=== PATIENT | female | born 1960 | race Caucasian/White ===

== ENCOUNTER → 2016-09-02 | Outpatient (CLI) | payer OTHER ==
[2016-09-02 15:53] LABS: HEMOGLOBIN 14.1 g/dL (11.7-16.4)
[2016-09-02 16:03] LABS: ASPARTATE AMINO TRANSFERASE 23 U/L (15-37); BLOOD UREA NITROGEN 17 mg/dL (7-18); C-REACTIVE PROTEIN, QUANT 0.81 mg/dL (0.02-0.49)
== END | disposition home or self-care (01) ==
LOC: LAB 15:29
PROVIDERS: ATTEND Internal Medicine Rheumatology
DX: M06.09 Rheumatoid arthritis without rheumatoid factor, multiple sites (principal); Z79.899 Other long term (current) drug therapy
CPT/HCPCS: 36415; 80053; 85025; 86140

== ENCOUNTER → 2016-09-11 | Outpatient (CLI) | payer OTHER | END | disposition home or self-care (01) | LOC: CVU 11:45 | PROVIDERS: ATTEND Internal Medicine Cardiovascular Disease | DX: I07.1 Rheumatic tricuspid insufficiency (principal); I34.0 Nonrheumatic mitral (valve) insufficiency; I87.2 Venous insufficiency (chronic) (peripheral) | CPT/HCPCS: 93306; 93970 ==

== ENCOUNTER 2016-10-23 08:46 | Emergency (ER) | payer OTHER ==
[~2016-10-23] VITALS: Ht 167.6 cm; Wt 96.3 kg
[2016-10-23] MEDS ORDERED: ONDANSETRON ODT 4 MG PO ONE (10:00)
[2016-10-23] MEDS ORDERED: ONDANSETRON ODT 4 MG ONE (10:01)
[2016-10-23 10:12] LABS: BLOOD UREA NITROGEN 23 mg/dL (7-18)
[2016-10-23] MEDS ORDERED: KETOROLAC 30 MG/1 ML IM ONE (11:00)
[2016-10-23] MEDS ORDERED: KETOROLAC 30 MG/1 ML ONE (11:17)
[2016-10-23 11:27] VITALS: BP 139/84
== END 2016-10-23 12:24 | disposition home or self-care (01) ==
LOC: ED 11:05
DX: G43.109 Migraine with aura, not intractable, without status migrainosus (principal); Z90.710 Acquired absence of both cervix and uterus; Z88.0 Allergy status to penicillin; Z88.5 Allergy status to narcotic agent; Z88.8 Allergy status to other drugs, medicaments and biological substances; Z91.013 Allergy to seafood
CPT/HCPCS: 36415; 70450; 80048; 85025; 96372; 99285; J1885; Q0162

== ENCOUNTER → 2016-12-05 | Outpatient (CLI) | payer OTHER | END | disposition home or self-care (01) | LOC: CFH 07:34 | PROVIDERS: ATTEND Family Medicine | DX: Z12.31 Encounter for screening mammogram for malignant neoplasm of breast (principal) | CPT/HCPCS: G0202 ==

== ENCOUNTER → 2017-01-13 | Outpatient (CLI) | payer OTHER | END | disposition home or self-care (01) | LOC: CFH 15:53 | PROVIDERS: ATTEND Anesthesiology | DX: M48.06 Spinal stenosis, lumbar region (principal); M47.895 Other spondylosis, thoracolumbar region; M43.16 Spondylolisthesis, lumbar region; M43.17 Spondylolisthesis, lumbosacral region; M12.88 Other specific arthropathies, not elsewhere classified, other specified site; M51.35 Other intervertebral disc degeneration, thoracolumbar region; M25.78 Osteophyte, vertebrae | CPT/HCPCS: 72148 ==

== ENCOUNTER 2017-03-12 07:46 | Day surgery (SDC) | payer OTHER ==
[~2017-03-12] VITALS: Ht 167.6 cm; Wt 95.9 kg
[2017-03-12] MEDS ORDERED: LACTATED RINGERS 1,000 ML IV SCH (08:44)
[2017-03-12] MEDS ORDERED: CELE200C PO (08:51)
[2017-03-12] MEDS ORDERED: CYAN50002 PO (08:51)
[2017-03-12] MEDS ORDERED: ETAN50PE SC (08:51)
[2017-03-12] MEDS ORDERED: OMEP-110 PO (08:51)
[2017-03-12] MEDS ORDERED: LEVO100T5 PO (08:51)
[2017-03-12] MEDS ORDERED: ACET-76 PO (08:51)
[2017-03-12] MEDS ORDERED: HYDR200T PO (08:51)
[2017-03-12] MEDS ORDERED: CHOL500015 PO (08:51)
[2017-03-12 08:52] VITALS: BP 117/83
[2017-03-12] MEDS ORDERED: PLEASE ENTER HEIGHT AND WEIGHT MC SCH (09:00)
[2017-03-12] MEDS ORDERED: LIDOCAINE 1%, 2ML SQ PRN (09:00)
[2017-03-12] MEDS ORDERED: LIDOCAINE 1%, 2ML ONE (09:01)
[2017-03-12] MEDS ORDERED: MIDAZOLAM 1 MG/ML, 2ML ONE ×2 (09:45→10:16)
[2017-03-12] MEDS ORDERED: SUCCINYLCHOLINE 20 MG/ML, 10ML ONE (10:16)
[2017-03-12] MEDS ORDERED: ONDANSETRON 2MG/ML, 2ML ONE (10:16)
[2017-03-12] MEDS ORDERED: PROPOFOL 10 MG/ML, 20ML ONE (10:16)
[2017-03-12] MEDS ORDERED: DEXAMETHASONE 4 MG/ML, 1ML ONE (10:16)
[2017-03-12] MEDS ORDERED: ACETAMINOPHEN 650 MG/20.3 ML UDC ONE (11:22)
[2017-03-12] MEDS ORDERED: HYDROmorphone 1 MG/ML, 1ML ONE (11:22)
[2017-03-12] MEDS: HYDROmorphone 1 MG/ML, 1ML IV PRN ×2 (11:23→11:30)
[2017-03-12] MEDS ORDERED: OXYcodone 5 MG/5 ML ORAL.SOL UDC PO PRN (11:30)
[2017-03-12] MEDS ORDERED: METOCLOPRAMIDE 5 MG/ML, 2ML IV PRN (11:30)
[2017-03-12] MEDS ORDERED: hydrALAzine 20 MG/ML, 1ML IV PRN (11:30)
[2017-03-12] MEDS ORDERED: ONDANSETRON 2MG/ML, 2ML IVPush PRN (11:30)
[2017-03-12] MEDS ORDERED: ACETAMINOPHEN 325 MG TABLET PO PRN (11:30)
[2017-03-12] MEDS ORDERED: FENTANYL PF 100 MCG/2ML IV PRN (11:30)
[2017-03-12] MEDS ORDERED: LABETALOL 5MG/ML, 20ML IV PRN (11:30)
== END 2017-03-12 13:00 ==
LOC: OUT 07:46
PROVIDERS: ATTEND Internal Medicine Gastroenterology
DX: D12.5 Benign neoplasm of sigmoid colon (principal); K63.5 Polyp of colon; K29.60 Other gastritis without bleeding; K21.9 Gastro-esophageal reflux disease without esophagitis; R13.10 Dysphagia, unspecified; Z88.6 Allergy status to analgesic agent; Z88.8 Allergy status to other drugs, medicaments and biological substances
CPT/HCPCS: 43239; 43248; 45380; 45385; 88305; J0330; J1100; J1170; J2250; J2405; J2704; J3490; J7120

== ENCOUNTER 2017-04-08 11:55 | Emergency (ER) | payer OTHER ==
[~2017-04-08] VITALS: Ht 167.6 cm; Wt 99.7 kg
[~2017-04-08 11:55] MED LIST: ACET-76 PO; CELE200C PO; CHOL500015 PO; CYAN50002 PO; ETAN50PE SC; HYDR200T PO; LEVO100T5 PO; OMEP-110 PO
[2017-04-08] MEDS ORDERED: SODIUM CHLORIDE 0.9% 1,000 ML IV ONE (12:23)
[2017-04-08] MEDS ORDERED: KETOROLAC 30 MG/1 ML IVPush ONE (12:30)
[2017-04-08] MEDS ORDERED: ONDANSETRON 2MG/ML, 2ML IVPush ONE (12:30)
[2017-04-08] MEDS ORDERED: SODIUM CHLORIDE 0.9% 1,000ML IV ONE (12:30)
[2017-04-08] MEDS ORDERED: SODIUM CHLORIDE FLUSH 10ML SYR IVF ONE (12:30)
[2017-04-08] MEDS ORDERED: KETOROLAC 30 MG/1 ML ONE (12:57)
[2017-04-08] MEDS ORDERED: ONDANSETRON 2MG/ML, 2ML ONE (12:58)
[2017-04-08 15:11] VITALS: BP 123/87
== END 2017-04-08 16:18 | disposition home or self-care (01) ==
LOC: ED 13:11
DX: G43.909 Migraine, unspecified, not intractable, without status migrainosus (principal); M06.9 Rheumatoid arthritis, unspecified; Z88.0 Allergy status to penicillin; Z90.710 Acquired absence of both cervix and uterus
CPT/HCPCS: 96361; 96374; 96375; 99285; J1885; J2405; J7030

== ENCOUNTER → 2017-05-01 | Outpatient (CLI) | payer OTHER | END | disposition home or self-care (01) | LOC: LAB 08:57 | PROVIDERS: ATTEND Internal Medicine Rheumatology | DX: M06.09 Rheumatoid arthritis without rheumatoid factor, multiple sites (principal); Z79.899 Other long term (current) drug therapy | CPT/HCPCS: 36415; 86480 ==

== ENCOUNTER 2017-06-18 15:55 | Emergency (ER) | payer OTHER ==
[~2017-06-18] VITALS: Ht 167.6 cm; Wt 98.2 kg
[2017-06-18 17:17] LABS: CULTURE INDICATED? YES; MICROSCOPIC INDICATED
[2017-06-18 17:19] LABS: BASOPHILS # (AUTO) 0.03 x10^3/uL (0-0.1); BASOPHILS % (AUTO) 1 % (0-1); EOSINOPHILS # (AUTO) 0.05 x10^3/uL (0-0.4); EOSINOPHILS % (AUTO) 1 % (1-7); LYMPHOCYTES # (AUTO) 2.12 x10^3/uL (1-3.4); LYMPHOCYTES % (AUTO) 35 % (22-44); MD NO; MEAN CORPUSCULAR HEMOGLOBIN 31.1 pg (27.0-34.8); MEAN CORPUSCULAR HGB CONC 33.6 g/dL (32.4-35.8); MEAN CORPUSCULAR VOLUME 92.7 fL (80-100); MEAN PLATELET VOLUME 10.2 fL (7.4-10.4); MONOCYTES # (AUTO) 0.49 x10^3/uL (0.2-0.8); MONOCYTES % (AUTO) 8 % (2-9); NEUTROPHILS # (AUTO) 3.29 x10^3/uL (1.8-6.8); NEUTROPHILS % (AUTO) 55 % (42-75); PLATELET COUNT 198 x10^3/uL (130-400); RED BLOOD COUNT 4.63 x10^6/uL (3.82-5.3); RED CELL DISTRIBUTION WIDTH 13.7 % (9.6-15.2)
[2017-06-18 17:27] LABS: ALBUMIN 3.7 g/dL (3.4-5.0); ANION GAP 5 mmol/L (5-15); CALCIUM 9.2 mg/dL (8.5-10.1); CHLORIDE 112 mmol/L (98-107); CREATININE 0.67 mg/dL (0.55-1.02)
[2017-06-18 20:40] VITALS: BP 120/65
== END 2017-06-18 20:45 | disposition home or self-care (01) ==
LOC: ED 20:30
DX: N30.90 Cystitis, unspecified without hematuria (principal); M54.5 Low back pain; G43.909 Migraine, unspecified, not intractable, without status migrainosus; M06.9 Rheumatoid arthritis, unspecified
CPT/HCPCS: 36415; 74018; 76770; 80048; 81001; 82040; 85025; 87086; 99285

== ENCOUNTER 2017-12-15 06:06 | Day surgery (SDC) | payer OTHER ==
[~2017-12-15] VITALS: Ht 167.6 cm; Wt 96.0 kg
[~2017-12-15 06:06] MED LIST changes: -HYDR200T PO; +HYDR200T72 PO
[2017-12-15 07:04] VITALS: BP 133/92
[2017-12-15 07:08] VITALS: BP 133/92
[2017-12-15] MEDS ORDERED: TORADOL PO (07:22)
[2017-12-15] MEDS ORDERED: SODIUM CHLORIDE 0.9% 1,000 ML IV SCH (07:30)
[2017-12-15] MEDS ORDERED: KETOROLAC 30 MG/1 ML ONE (09:41)
[2017-12-15] MEDS ORDERED: KETOROLAC 30 MG/1 ML IVPush ONE (10:00)
[2017-12-15 10:07] LABS: GLUCOSE, CSF 47 mg/dL (40-80); TOTAL PROTEIN,CSF 47 mg/dL (15-45)
== END 2017-12-15 11:50 ==
LOC: OUT 06:06
PROVIDERS: ATTEND Registered Nurse
DX: G35 Multiple sclerosis (principal); Z88.8 Allergy status to other drugs, medicaments and biological substances; Z88.6 Allergy status to analgesic agent; Z88.0 Allergy status to penicillin; Z91.013 Allergy to seafood
CPT/HCPCS: 36415; 62270; 82040; 82042; 82784; 82945; 83873; 84157; 86645; 86695; 86696; 86762; 86777; 86778; 89051; J1885; J7030

== ENCOUNTER → 2018-03-04 | Outpatient (CLI) | payer OTHER ==
[~2018-03-04] MED LIST changes: +TORADOL PO
== END | disposition home or self-care (01) ==
LOC: CFH 10:47
PROVIDERS: ATTEND Specialist
DX: Z12.31 Encounter for screening mammogram for malignant neoplasm of breast (principal); M50.30 Other cervical disc degeneration, unspecified cervical region; M48.02 Spinal stenosis, cervical region; M06.9 Rheumatoid arthritis, unspecified; M15.9 Polyosteoarthritis, unspecified; M79.7 Fibromyalgia; Z88.0 Allergy status to penicillin; Z88.2 Allergy status to sulfonamides; Z88.5 Allergy status to narcotic agent
CPT/HCPCS: 72141; 77063; 77067

== ENCOUNTER → 2018-04-21 | Outpatient (CLI) | payer OTHER | END | disposition home or self-care (01) | LOC: CFH 09:08 | PROVIDERS: ATTEND Anesthesiology | DX: M48.02 Spinal stenosis, cervical region (principal) | CPT/HCPCS: 72125 ==

== ENCOUNTER → 2018-09-30 | Outpatient (CLI) | payer OTHER ==
[2018-09-30 14:17] LABS: BASOPHILS # (AUTO) 0.02 x10^3/uL (0-0.1); BASOPHILS % (AUTO) 0 % (0-1); EOSINOPHILS # (AUTO) 0.08 x10^3/uL (0-0.4); EOSINOPHILS % (AUTO) 1 % (1-7); LYMPHOCYTES # (AUTO) 2.73 x10^3/uL (1-3.4); LYMPHOCYTES % (AUTO) 39 % (22-44); MD NO; MEAN CORPUSCULAR HEMOGLOBIN 29.6 pg (27.0-34.8); MEAN CORPUSCULAR HGB CONC 33.5 g/dL (32.4-35.8); MEAN CORPUSCULAR VOLUME 88.3 fL (80-100); MEAN PLATELET VOLUME 9.9 fL (7.4-10.4); MONOCYTES # (AUTO) 0.53 x10^3/uL (0.2-0.8); MONOCYTES % (AUTO) 8 % (2-9); NEUTROPHILS % (AUTO) 52 % (42-75); PLATELET COUNT 226 x10^3/uL (130-400); RED CELL DISTRIBUTION WIDTH 14.1 % (9.6-15.2)
[2018-09-30 14:28] LABS: ALANINE AMINOTRANSFERASE 33 U/L (12-78); ALBUMIN 4.1 g/dL (3.4-5.0); ANION GAP 9 mmol/L (5-15); CALCIUM 9.5 mg/dL (8.5-10.1); CHLORIDE 114 mmol/L (98-107)
[2018-09-30 14:31] LABS: ALKALINE PHOSPHATASE 137 U/L (45-117); BILIRUBIN,TOTAL 0.4 mg/dL (0.2-1.0); CREATININE 0.78 mg/dL (0.55-1.02); TOTAL PROTEIN 7.7 g/dL (6.4-8.2)
== END | disposition home or self-care (01) ==
LOC: LAB 13:59
PROVIDERS: ATTEND Family Medicine
DX: M15.0 Primary generalized (osteo)arthritis (principal)
CPT/HCPCS: 36415; 80053; 85025

== ENCOUNTER → 2019-04-20 | Outpatient (CLI) | payer OTHER ==
[2019-04-20 13:00] LABS: HCT (SEDRATE) 44.5 % (34.6-47.8)
== END | disposition home or self-care (01) ==
LOC: LAB 10:19
PROVIDERS: ATTEND Internal Medicine Rheumatology
DX: M06.9 Rheumatoid arthritis, unspecified (principal); Z79.899 Other long term (current) drug therapy
CPT/HCPCS: 36415; 85651; 86140; 86803; 87340

== ENCOUNTER 2019-06-07 15:28 | Outpatient (CLI) | payer OTHER ==
[2019-06-07 15:59] LABS: HCT (SEDRATE) 43.8 % (34.6-47.8)
== END 2019-06-07 23:59 | disposition home or self-care (01) ==
LOC: LAB 15:28
PROVIDERS: ATTEND Internal Medicine Rheumatology
DX: M06.9 Rheumatoid arthritis, unspecified (principal)
CPT/HCPCS: 36415; 85651; 86140

== ENCOUNTER → 2019-07-30 | Outpatient (CLI) | payer OTHER ==
[2019-07-30 11:42] LABS: BASOPHILS # (AUTO) 0.04 x10^3/uL (0-0.1); BASOPHILS % (AUTO) 1 % (0-1); EOSINOPHILS # (AUTO) 0.04 x10^3/uL (0-0.4); EOSINOPHILS % (AUTO) 0 % (1-7); LYMPHOCYTES # (AUTO) 2.73 x10^3/uL (1-3.4); LYMPHOCYTES % (AUTO) 33 % (22-44); MD NO; MEAN CORPUSCULAR HEMOGLOBIN 30.2 pg (27.0-34.8); MEAN CORPUSCULAR HGB CONC 33.3 g/dL (32.4-35.8); MEAN CORPUSCULAR VOLUME 90.6 fL (80-100); MEAN PLATELET VOLUME 10.5 fL (7.4-10.4); MONOCYTES # (AUTO) 0.59 x10^3/uL (0.2-0.8); MONOCYTES % (AUTO) 7 % (2-9); NEUTROPHILS # (AUTO) 4.88 x10^3/uL (1.8-6.8); NEUTROPHILS % (AUTO) 59 % (42-75); PLATELET COUNT 231 x10^3/uL (130-400); RED BLOOD COUNT 4.79 x10^6/uL (3.82-5.3); RED CELL DISTRIBUTION WIDTH 14.8 % (9.6-15.2)
[2019-07-30 12:09] LABS: CHLORIDE 110 mmol/L (98-107)
[2019-07-30 12:35] LABS: ALANINE AMINOTRANSFERASE 26 U/L (12-78); ALBUMIN 3.7 g/dL (3.4-5.0); ALKALINE PHOSPHATASE 121 U/L (45-117); ANION GAP 3 mmol/L (5-15); BILIRUBIN,TOTAL 0.4 mg/dL (0.2-1.0); CALCIUM 9.1 mg/dL (8.5-10.1); CHOL/HDL RATIO 2.9; CHOLESTEROL, TOTAL 183 mg/dL (140-239); CREATININE 0.74 mg/dL (0.55-1.02); FREE T4 (FREE THYROXINE) 1.06 ng/dL (0.76-1.46); HDL CHOL % 35 % (28-40); HDL CHOLESTEROL (DIRECT) 64 mg/dL (40-60); LDL CHOLESTEROL,CALCULATED 95 mg/dL (54-169); LDL/HDL RATIO 1.5 (0.5-3.0); TOTAL PROTEIN 7.5 g/dL (6.4-8.2); TRIGLYCERIDES 120 mg/dL (50-200); VLDL CHOLESTEROL 24 mg/dL (0-25)
== END | disposition home or self-care (01) ==
LOC: LAB 11:18
PROVIDERS: ATTEND Family Medicine
DX: Z13.1 Encounter for screening for diabetes mellitus (principal); R00.2 Palpitations; R53.83 Other fatigue; Z13.220 Encounter for screening for lipoid disorders
CPT/HCPCS: 36415; 80053; 80061; 82306; 82607; 83036; 84439; 84443; 85025

== ENCOUNTER 2019-09-30 10:01 | Emergency (ER) | payer OTHER ==
[~2019-09-30] VITALS: Ht 167.6 cm; Wt 98.1 kg
[2019-09-30 10:09] VITALS: BP 136/88
[2019-09-30] MEDS ORDERED: KETOROLAC 30 MG/1 ML ONE (10:26)
[2019-09-30] MEDS ORDERED: KETOROLAC 30 MG/1 ML IM ONE (10:30)
--- NOTE | 2019-09-30 10:48 | NUR ---
Patient into room, midlevel provider at bedside assessing patient. RN returned with ice pack. Order received for analgesic antiinflammatory medication. RN returned, administered. crane service technician to bedside. Out of room, awaiting imaging and results.
--- NOTE | 2019-09-30 11:04 | NUR ---
Patient returned from imaging. Awaiting results.
== END 2019-09-30 11:57 | disposition home or self-care (01) ==
LOC: ED 11:15
DX: S80.01XA Contusion of right knee, initial encounter (principal); S40.012A Contusion of left shoulder, initial encounter; W01.0XXA Fall on same level from slipping, tripping and stumbling without subsequent striking against object, initial encounter; Y93.89 Activity, other specified; Y92.69 Other specified industrial and construction area as the place of occurrence of the external cause; Y99.8 Other external cause status
CPT/HCPCS: 73030; 73564; 96372; 99284; J1885

== ENCOUNTER → 2019-11-12 | Outpatient (CLI) | payer OTHER | END | disposition home or self-care (01) | LOC: RAD 07:53 | PROVIDERS: ATTEND Family Medicine | DX: M19.012 Primary osteoarthritis, left shoulder (principal); M75.52 Bursitis of left shoulder ==

== ENCOUNTER → 2019-12-07 | Outpatient (CLI) | payer OTHER | END | disposition home or self-care (01) | LOC: CFH 14:49 | PROVIDERS: ATTEND Family Medicine | DX: Z12.31 Encounter for screening mammogram for malignant neoplasm of breast (principal) | CPT/HCPCS: 77063; 77067 ==

== ENCOUNTER 2019-12-29 18:05 | Outpatient (CLI) | payer OTHER ==
[2019-12-29 18:49] LABS: BASOPHILS # (AUTO) 0.03 x10^3/uL (0-0.1); BASOPHILS % (AUTO) 0 % (0-1); EOSINOPHILS # (AUTO) 0.08 x10^3/uL (0-0.4); EOSINOPHILS % (AUTO) 1 % (1-7); LYMPHOCYTES % (AUTO) 36 % (22-44); MD NO; MEAN CORPUSCULAR HEMOGLOBIN 30.8 pg (27.0-34.8); MEAN CORPUSCULAR HGB CONC 33.1 g/dL (32.4-35.8); MEAN CORPUSCULAR VOLUME 93.1 fL (80-100); MEAN PLATELET VOLUME 10.5 fL (7.4-10.4); MONOCYTES # (AUTO) 0.65 x10^3/uL (0.2-0.8); MONOCYTES % (AUTO) 8 % (2-9); NEUTROPHILS # (AUTO) 4.15 x10^3/uL (1.8-6.8); NEUTROPHILS % (AUTO) 54 % (42-75); PLATELET COUNT 189 x10^3/uL (130-400); RED BLOOD COUNT 4.73 x10^6/uL (3.82-5.3); RED CELL DISTRIBUTION WIDTH 13.9 % (9.6-15.2)
[2019-12-29 18:57] LABS: ANION GAP 6 mmol/L (5-15); CALCIUM 9.7 mg/dL (8.5-10.1); CHLORIDE 116 mmol/L (98-107)
[2019-12-29 18:58] LABS: CREATININE 0.83 mg/dL (0.55-1.02)
[2019-12-29] MEDS ORDERED: OMNIPAQUE 350 MG/ML, 100ML BOTTLE ONE (19:00)
== END 2019-12-29 23:59 | disposition home or self-care (01) ==
LOC: RAD 18:05 → LAB 23:59
PROVIDERS: ATTEND Nurse Practitioner Family
DX: K76.89 Other specified diseases of liver (principal); M51.36 Other intervertebral disc degeneration, lumbar region; N30.01 Acute cystitis with hematuria; B37.9 Candidiasis, unspecified
CPT/HCPCS: 36415; 74178; 80048; 85025; Q9967

== ENCOUNTER → 2020-01-20 | Outpatient (CLI) | payer OTHER ==
[2020-01-20 13:14] LABS: CHLORIDE 113 mmol/L (98-107)
[2020-01-20 13:18] LABS: BASOPHILS # (AUTO) 0.02 x10^3/uL (0-0.1); BASOPHILS % (AUTO) 0 % (0-1); EOSINOPHILS # (AUTO) 0.08 x10^3/uL (0-0.4); EOSINOPHILS % (AUTO) 1 % (1-7); LYMPHOCYTES % (AUTO) 19 % (22-44); MD NO; MEAN CORPUSCULAR HEMOGLOBIN 30.5 pg (27.0-34.8); MEAN CORPUSCULAR HGB CONC 32.4 g/dL (32.4-35.8); MEAN CORPUSCULAR VOLUME 94.1 fL (80-100); MEAN PLATELET VOLUME 10.8 fL (7.4-10.4); MONOCYTES # (AUTO) 0.16 x10^3/uL (0.2-0.8); MONOCYTES % (AUTO) 2 % (2-9); NEUTROPHILS # (AUTO) 5.91 x10^3/uL (1.8-6.8); NEUTROPHILS % (AUTO) 78 % (42-75); PLATELET COUNT 172 x10^3/uL (130-400); RED BLOOD COUNT 4.68 x10^6/uL (3.82-5.3); RED CELL DISTRIBUTION WIDTH 13.6 % (9.6-15.2)
[2020-01-20 13:29] LABS: ALANINE AMINOTRANSFERASE 30 U/L (12-78); ALBUMIN 3.7 g/dL (3.4-5.0); ALKALINE PHOSPHATASE 119 U/L (45-117); ANION GAP 5 mmol/L (5-15); BILIRUBIN,TOTAL 0.6 mg/dL (0.2-1.0); CALCIUM 9.4 mg/dL (8.5-10.1); CREATININE 0.65 mg/dL (0.55-1.02)
== END | disposition home or self-care (01) ==
LOC: CFH 09:02
PROVIDERS: ATTEND Internal Medicine Rheumatology
DX: M06.9 Rheumatoid arthritis, unspecified (principal); Z79.899 Other long term (current) drug therapy
CPT/HCPCS: 36415; 80053; 85025; 85651; 86140

== ENCOUNTER → 2020-03-10 | Outpatient (CLI) | payer OTHER ==
[~2020-03-10] MED LIST changes: +BOTOX; +CAFFEINE PO; +DEXT1DRO6 EACHEYE; +FREM225A SC; +GABA-826 PO; +KETO10TA PO; +LORA10TA75 PO; +MIRALAX; +MONT10TA11 PO; +SODIUM CHLORIDE NAS; +TOCI162P SC; +TYLENOL PO; +[UNRECOGNIZED DRUG - CODE] NAS
== END | disposition home or self-care (01) ==
LOC: STAR 08:53
PROVIDERS: ATTEND Internal Medicine
DX: Z01.812 Encounter for preprocedural laboratory examination (principal); Z20.828 Contact with and (suspected) exposure to other viral communicable diseases; Z86.010 Personal history of colon polyps; K59.00 Constipation, unspecified; K21.9 Gastro-esophageal reflux disease without esophagitis
CPT/HCPCS: 36415; 87635; 93005

== ENCOUNTER 2020-03-13 10:50 | Outpatient (CLI) | payer OTHER | END 2020-03-13 23:59 | disposition home or self-care (01) | LOC: CFH 10:50 | PROVIDERS: ATTEND Internal Medicine Cardiovascular Disease | DX: I35.8 Other nonrheumatic aortic valve disorders (principal) | CPT/HCPCS: 93306 ==

== ENCOUNTER 2020-03-14 13:53 | Day surgery (SDC) | payer OTHER ==
[~2020-03-14] VITALS: Ht 167.6 cm; Wt 97.8 kg
[2020-03-14] MEDS ORDERED: CHLORHEXIDINE 15 ML UDC ONE (14:07)
[2020-03-14] MEDS ORDERED: PROPOFOL 50 ML ONE (14:09)
[2020-03-14] MEDS ORDERED: MIDAZOLAM 1 MG/ML, 2ML ONE (14:09)
[2020-03-14 14:16] VITALS: BP 141/92
[2020-03-14] MEDS ORDERED: LACTATED RINGERS 1,000 ML IV SCH (14:25)
[2020-03-14] MEDS ORDERED: CHLORHEXIDINE 15 ML UDC MM ONE (14:30)
[2020-03-14] MEDS ORDERED: ONDANSETRON 2MG/ML, 2ML ONE (14:37)
== END 2020-03-14 16:35 | disposition home or self-care (01) ==
LOC: OR 13:53
PROVIDERS: ATTEND Internal Medicine
DX: K59.09 Other constipation (principal); D12.0 Benign neoplasm of cecum; D12.2 Benign neoplasm of ascending colon; K29.50 Unspecified chronic gastritis without bleeding; K21.0 Gastro-esophageal reflux disease with esophagitis; R10.9 Unspecified abdominal pain; Q85.8 Other phakomatoses, not elsewhere classified; K44.9 Diaphragmatic hernia without obstruction or gangrene; M06.9 Rheumatoid arthritis, unspecified; G47.30 Sleep apnea, unspecified; G43.909 Migraine, unspecified, not intractable, without status migrainosus; E03.9 Hypothyroidism, unspecified; M79.7 Fibromyalgia; M19.90 Unspecified osteoarthritis, unspecified site; E66.9 Obesity, unspecified; Z68.34 Body mass index [BMI] 34.0-34.9, adult; Z90.710 Acquired absence of both cervix and uterus; Z88.1 Allergy status to other antibiotic agents; Z88.0 Allergy status to penicillin; Z88.2 Allergy status to sulfonamides; Z79.899 Other long term (current) drug therapy; Z88.5 Allergy status to narcotic agent; Z98.890 Other specified postprocedural states; Z86.010 Personal history of colon polyps; Z88.8 Allergy status to other drugs, medicaments and biological substances; Z91.013 Allergy to seafood; Z82.49 Family history of ischemic heart disease and other diseases of the circulatory system; Z80.0 Family history of malignant neoplasm of digestive organs
CPT/HCPCS: 43239; 45380; 45385; 88305; J2250; J2405; J2704; J7120

== ENCOUNTER → 2020-04-05 | Outpatient (CLI) | payer OTHER | END | disposition home or self-care (01) | LOC: CFH 08:52 | PROVIDERS: ATTEND Family Medicine | DX: N95.8 Other specified menopausal and perimenopausal disorders (principal); M85.80 Other specified disorders of bone density and structure, unspecified site | CPT/HCPCS: 77080 ==

== ENCOUNTER → 2020-05-18 | Outpatient (CLI) | payer OTHER ==
[~2020-05-18] MED LIST changes: +ALEN70TA66 PO; +CITRACAL CALCIUM PO; +DOCU-131 PO; +MONT10TA6 PO; +STEROID INJECTION
== END | disposition home or self-care (01) ==
LOC: STAR 10:10
PROVIDERS: ATTEND Orthopaedic Surgery
DX: Z01.812 Encounter for preprocedural laboratory examination (principal); Z20.828 Contact with and (suspected) exposure to other viral communicable diseases; S46.012A Strain of muscle(s) and tendon(s) of the rotator cuff of left shoulder, initial encounter; X58.XXXA Exposure to other specified factors, initial encounter; Y93.89 Activity, other specified; Y92.89 Other specified places as the place of occurrence of the external cause; Y99.8 Other external cause status
CPT/HCPCS: 87635; 93005

== ENCOUNTER 2020-05-24 09:03 | Day surgery (SDC) | payer OTHER ==
[~2020-05-24] VITALS: Ht 167.6 cm; Wt 99.0 kg
[~2020-05-24 09:03] MED LIST changes: +BUPIVACAINE/PF 0.25% ONE; -MONT10TA11 PO; +MONT10TA96 PO
[2020-05-24 09:40] VITALS: BP 109/80
[2020-05-24] MEDS ORDERED: ROPIvacaine/PF 0.5%, 30 ML ONE (09:58)
[2020-05-24] MEDS ORDERED: MIDAZOLAM 1 MG/ML, 2ML ONE (09:58)
[2020-05-24] MEDS ORDERED: FENTANYL PF 100 MCG/2ML ONE ×3 (09:58→14:19)
[2020-05-24] MEDS ORDERED: CHLORHEXIDINE 15 ML UDC MM ONE (10:00)
[2020-05-24] MEDS ORDERED: LIDOCAINE-MPF 1%, 2ML INFIL ONE (10:00)
[2020-05-24] MEDS ORDERED: LACTATED RINGERS 1,000 ML IV SCH (10:00)
[2020-05-24] MEDS ORDERED: PROPOFOL 10 MG/ML, 20ML ONE (10:43)
[2020-05-24] MEDS ORDERED: FLUCONASE INH (10:57)
[2020-05-24] MEDS ORDERED: PROPOFOL 10 MG/ML, 50ML ONE (11:24)
[2020-05-24] MEDS ORDERED: CEFAZOLIN 1,000 MG ONE ×2 (11:43)
[2020-05-24] MEDS ORDERED: SUCCINYLCHOLINE 20 MG/ML, 10ML ONE (11:43)
[2020-05-24] MEDS ORDERED: DEXAMETHASONE 4 MG/ML, 1ML ONE ×2 (11:43)
[2020-05-24] MEDS ORDERED: ONDANSETRON 2MG/ML, 2ML ONE (11:44)
[2020-05-24] MEDS ORDERED: PHENYLEPHRINE 10 MG/ML ONE (11:45)
[2020-05-24] MEDS ORDERED: PROMETHAZINE 25 MG/ML, 1ML IVPush PRN (12:30)
[2020-05-24] MEDS ORDERED: OXYcodone 5 MG/5 ML ORAL.SOL UDC PO PRN (12:30)
[2020-05-24] MEDS ORDERED: FENTANYL PF 100 MCG/2ML IV PRN (12:30)
[2020-05-24] MEDS ORDERED: ACETAMINOPHEN 325 MG TABLET PO PRN (12:30)
[2020-05-24] MEDS ORDERED: PROMETHAZINE 25 MG/ML, 1ML ONE (13:10)
[2020-05-24] MEDS ORDERED: OXYcodone 5 MG/5 ML ORAL.SOL UDC ONE (14:19)
[2020-05-24] MEDS ORDERED: HYDROmorphone 1 MG/ML, 1ML INJ ONE (14:27)
[2020-05-24] MEDS ORDERED: HYDROXYZINE PAMOATE 50MG CAP PO ONE (14:30)
[2020-05-24] MEDS ORDERED: HYDROmorphone 1 MG/ML, 1ML INJ IVPush PRN (14:30)
[2020-05-24] MEDS ORDERED: KETOROLAC 30 MG/1 ML ONE (14:34)
[2020-05-24] MEDS ORDERED: KETOROLAC 30 MG/1 ML IVPush ONE (15:00)
== END 2020-05-24 17:50 | disposition home or self-care (01) ==
LOC: OUT 09:03
PROVIDERS: ATTEND Orthopaedic Surgery
DX: S46.012A Strain of muscle(s) and tendon(s) of the rotator cuff of left shoulder, initial encounter (principal); S46.112A Strain of muscle, fascia and tendon of long head of biceps, left arm, initial encounter; S43.432A Superior glenoid labrum lesion of left shoulder, initial encounter; M75.42 Impingement syndrome of left shoulder; M94.212 Chondromalacia, left shoulder; G89.18 Other acute postprocedural pain; K21.9 Gastro-esophageal reflux disease without esophagitis; J45.909 Unspecified asthma, uncomplicated; G47.30 Sleep apnea, unspecified; E07.9 Disorder of thyroid, unspecified; M06.9 Rheumatoid arthritis, unspecified; Z79.890 Hormone replacement therapy; Z79.891 Long term (current) use of opiate analgesic; Z79.899 Other long term (current) drug therapy; Z88.0 Allergy status to penicillin; Z88.2 Allergy status to sulfonamides; Z88.6 Allergy status to analgesic agent; Z88.5 Allergy status to narcotic agent; Z88.8 Allergy status to other drugs, medicaments and biological substances; Z98.890 Other specified postprocedural states; Z82.61 Family history of arthritis; Z82.49 Family history of ischemic heart disease and other diseases of the circulatory system; W18.39XA Other fall on same level, initial encounter; Y93.89 Activity, other specified; Y92.89 Other specified places as the place of occurrence of the external cause; Y99.8 Other external cause status
CPT/HCPCS: 29823; 29826; 29827; 29828; 64415; C1713; J0330; J0690; J1100; J1170; J1885; J2250; J2370; J2405; J2550; J2704; J2795; J3010; J7120

== ENCOUNTER → 2020-06-22 | Outpatient (CLI) | payer OTHER ==
[~2020-06-22] MED LIST changes: -ALEN70TA66 PO; +ALEN70TA77 PO; -BUPIVACAINE/PF 0.25% ONE; +FLUCONASE INH
[2020-06-22 12:30] LABS: HCT (SEDRATE) 43.5 % (34.6-47.8)
[2020-06-22 12:32] LABS: ALANINE AMINOTRANSFERASE 29 U/L (12-78); CREATININE 0.67 mg/dL (0.55-1.02)
[2020-06-22 12:34] LABS: BASOPHILS % (AUTO) 1 % (0-1); EOSINOPHILS % (AUTO) 3 % (1-7); LYMPHOCYTES % (AUTO) 40 % (22-44); MEAN CORPUSCULAR HGB CONC 33.7 g/dL (32.4-35.8); MEAN PLATELET VOLUME 10.2 fL (7.4-10.4); MONOCYTES % (AUTO) 9 % (2-9); NEUTROPHILS % (AUTO) 48 % (42-75); PLATELET COUNT 254 x10^3/uL (130-400); RED BLOOD COUNT 4.76 x10^6/uL (3.82-5.3); RED CELL DISTRIBUTION WIDTH 12.7 % (9.6-15.2)
[2020-06-22 12:35] LABS: MD NO
== END | disposition home or self-care (01) ==
LOC: RAD 11:56
PROVIDERS: ATTEND Internal Medicine
DX: M79.642 Pain in left hand (principal); M79.641 Pain in right hand; M15.0 Primary generalized (osteo)arthritis; M06.09 Rheumatoid arthritis without rheumatoid factor, multiple sites; Z79.899 Other long term (current) drug therapy
CPT/HCPCS: 36415; 82040; 82565; 84450; 84460; 85025; 85651; 86140

== ENCOUNTER → 2020-10-03 | Outpatient (CLI) | payer OTHER ==
[~2020-10-03] MED LIST changes: +MONT10TA17 PO; -MONT10TA96 PO
== END | disposition home or self-care (01) ==
LOC: CVU 09:42
PROVIDERS: ATTEND Internal Medicine Cardiovascular Disease
DX: I73.9 Peripheral vascular disease, unspecified (principal)
CPT/HCPCS: 93922

== ENCOUNTER → 2020-11-16 | Outpatient (CLI) | payer OTHER | END | disposition home or self-care (01) | LOC: RAD 13:58 | PROVIDERS: ATTEND Orthopaedic Surgery | DX: M75.112 Incomplete rotator cuff tear or rupture of left shoulder, not specified as traumatic (principal) ==

== ENCOUNTER → 2021-01-18 | Outpatient (CLI) | payer OTHER ==
[~2021-01-18] MED LIST changes: +CALC-534 PO; +CHOL10003 PO; +FREM225S INJ; +LEVO112T2 PO; +METH-639 PO; +ONAB100V INJ; +TOCI162P INJ
== END | disposition home or self-care (01) ==
LOC: STAR 11:06
PROVIDERS: ATTEND Orthopaedic Surgery
DX: Z01.818 Encounter for other preprocedural examination (principal); S46.012A Strain of muscle(s) and tendon(s) of the rotator cuff of left shoulder, initial encounter; Z20.822 Contact with and (suspected) exposure to COVID-19; X58.XXXA Exposure to other specified factors, initial encounter; Y92.89 Other specified places as the place of occurrence of the external cause; Y93.89 Activity, other specified; Y99.8 Other external cause status
CPT/HCPCS: 93005; U0003; U0005

== ENCOUNTER 2021-01-24 10:07 | Day surgery (SDC) | payer OTHER ==
[~2021-01-24] VITALS: Ht 167.6 cm; Wt 101.1 kg
[~2021-01-24 10:07] MED LIST changes: +FENTANYL PF 100 MCG/2ML ONE; +MIDAZOLAM 1 MG/ML, 2ML ONE
[2021-01-24 10:51] VITALS: BP 125/85
[2021-01-24] MEDS ORDERED: BUPIVACAINE/PF 0.25% ONE (10:57)
[2021-01-24] MEDS ORDERED: EPINEPHRINE 1 MG/ML, 1ML ONE (10:57)
[2021-01-24] MEDS ORDERED: CHLORHEXIDINE 15 ML UDC PO ONE (11:00)
[2021-01-24] MEDS ORDERED: LACTATED RINGERS 1,000 ML IV SCH (11:00)
[2021-01-24] MEDS ORDERED: BUPIVACAINE LIPOSOME/PF 10ML INFIL ONE (11:44)
[2021-01-24] MEDS ORDERED: SCOPOLAMINE 1MG PATCH TD SCH (12:00)
[2021-01-24] MEDS ORDERED: PROPOFOL 50 ML ONE (12:12)
[2021-01-24] MEDS ORDERED: KETOROLAC 30 MG/1 ML ONE (12:21)
[2021-01-24] MEDS ORDERED: MIDAZOLAM 1 MG/ML, 2ML IV PRN (12:30)
[2021-01-24] MEDS ORDERED: LABETALOL 5MG/ML, 20ML IV PRN (12:30)
[2021-01-24] MEDS ORDERED: PROMETHAZINE 25 MG/ML, 1ML IVPush PRN (12:30)
[2021-01-24] MEDS ORDERED: HYDROmorphone 1 MG/ML, 1ML INJ IVPush PRN (12:30)
[2021-01-24] MEDS ORDERED: FENTANYL PF 100 MCG/2ML IV PRN (12:30)
[2021-01-24] MEDS ORDERED: OXYcodone 5 MG/5 ML ORAL.SOL UDC PO PRN (12:30)
[2021-01-24] MEDS ORDERED: ALBUTEROL SULFATE 2.5 MG/3 ML NPPB PRN (12:30)
[2021-01-24] MEDS ORDERED: ACETAMINOPHEN 325 MG TABLET PO PRN (12:30)
[2021-01-24] MEDS ORDERED: FENTANYL PF 100 MCG/2ML ONE ×2 (13:04→13:37)
[2021-01-24] MEDS ORDERED: SUCCINYLCHOLINE 20 MG/ML, 10ML ONE (13:11)
[2021-01-24] MEDS ORDERED: ROCURONIUM 10MG/ML,5ML ONE (13:11)
[2021-01-24] MEDS ORDERED: DEXAMETHASONE 4 MG/ML, 1ML ONE (13:11)
[2021-01-24] MEDS ORDERED: ONDANSETRON 2MG/ML, 2ML ONE (13:11)
[2021-01-24] MEDS ORDERED: CEFAZOLIN 1,000 MG ONE (13:11)
[2021-01-24] MEDS ORDERED: BUPIVACAINE/PF 0.5% ONE (13:11)
[2021-01-24] MEDS ORDERED: PROPOFOL 10 MG/ML, 20ML ONE (13:11)
[2021-01-24] MEDS ORDERED: LIDOCAINE-MPF 2% ,5ML ONE (13:12)
[2021-01-24] MEDS ORDERED: HYDROmorphone 2 MG/ML, 1ML ONE (13:37)
== END 2021-01-24 17:17 | disposition home or self-care (01) ==
LOC: OUT 10:07
PROVIDERS: ATTEND Orthopaedic Surgery
DX: S46.012A Strain of muscle(s) and tendon(s) of the rotator cuff of left shoulder, initial encounter (principal); K21.9 Gastro-esophageal reflux disease without esophagitis; J45.909 Unspecified asthma, uncomplicated; E03.9 Hypothyroidism, unspecified; G47.33 Obstructive sleep apnea (adult) (pediatric); M06.9 Rheumatoid arthritis, unspecified; Z86.718 Personal history of other venous thrombosis and embolism; Z79.890 Hormone replacement therapy; Z88.8 Allergy status to other drugs, medicaments and biological substances; X58.XXXA Exposure to other specified factors, initial encounter; Y93.89 Activity, other specified; Y92.89 Other specified places as the place of occurrence of the external cause; Y99.8 Other external cause status
CPT/HCPCS: 29827; 64415; C1713; C5271; J0171; J0330; J0690; J1100; J1170; J1885; J2250; J2405; J2704; J3010; J7120; Q4100

== ENCOUNTER 2021-02-06 09:47 | Outpatient (CLI) | payer OTHER ==
[~2021-02-06 09:47] MED LIST changes: -FENTANYL PF 100 MCG/2ML ONE; -MIDAZOLAM 1 MG/ML, 2ML ONE
[2021-02-06 10:33] LABS: FREE T4 (FREE THYROXINE) 1.18 ng/dL (0.76-1.46)
== END 2021-02-06 23:59 | disposition home or self-care (01) ==
LOC: LAB 09:47
PROVIDERS: ATTEND Internal Medicine Endocrinology, Diabetes & Metabolism
DX: E06.3 Autoimmune thyroiditis (principal)
CPT/HCPCS: 36415; 84439; 84443

== ENCOUNTER → 2021-03-07 | Outpatient (CLI) | payer OTHER | END | disposition home or self-care (01) | LOC: RAD 11:07 | PROVIDERS: ATTEND Orthopaedic Surgery Foot and Ankle Surgery | DX: S93.499A Sprain of other ligament of unspecified ankle, initial encounter (principal); M76.821 Posterior tibial tendinitis, right leg; X58.XXXA Exposure to other specified factors, initial encounter; Y93.89 Activity, other specified; Y92.89 Other specified places as the place of occurrence of the external cause; Y99.8 Other external cause status ==